=== PATIENT | female | born 2000 | race Caucasian/White ===

== ENCOUNTER → 2022-12-04 12:47 | Outpatient (CLI) | payer BC, SELFPAY ==
--- NOTE | ~2022-12-04 | US_ITS ---
EXAMINATION: US OB transvaginal DATE: 12/04/2022 13:23 INDICATION: Uncertain gestational dates. TECHNIQUE: Real-time transvaginal obstetric ultrasound. FINDINGS: No prior studies for comparison. The uterus measures 8.6 x 4.6 x 5.6 cm. There is an intrauterine gestational sac, with pole rafia ntified. The crown rump length measures 0.31 cm, which correlates with a estimated gestational age o f 5 weeks 6 days. heart tones are identified measuring 118 BPM. The ovaries are within normal limits. There is a small amount of free fluid in the pelvis. IMPRESSION: 1. SL IUP with an EGA of 5 weeks, 6 days (EDC by current ultrasound of 07/31/2023). Reviewed, dictated and finalized at location B. IMPRESSION: 1. SL IUP with an EGA of 5 weeks, 6 days (EDC by current ultrasound of ).
== END ==
PROVIDERS: PCP Obstetrics & Gynecology Gynecology; Visit Provider Obstetrics & Gynecology Gynecology
DX: Z36.87 Encounter for antenatal screening for uncertain dates (principal); Z3A.01 Less than 8 weeks gestation of pregnancy
CPT/HCPCS: 76817

== ENCOUNTER → 2022-12-19 12:44 | Outpatient (CLI) | payer BC, SELFPAY ==
--- NOTE | ~2022-12-19 | US_ITS ---
EXAMINATION: US OB <= 14 weeks fetus DATE: 12/19/2022 13:12 INDICATION: First trimester dating TECHNIQUE: Real-time pelvic transabdominal and transvaginal ultrasound was performed. COMPARISON: 12/04/2022 FINDINGS: The uterus measures 9.3 x 6.3 x 6.2 cm. There is an intrauterine gestational sac. A yolk sa c is identified. heart motion is identified measuring 175 beats per minute (bpm) by M-mode Dopp ler. The crown rump length measures 18 mm, which correlates with an estimated gestational age o f 8 weeks and 2 day(s) (+/-) 5 day(s). The right ovary measures 2.5 x 2.6 x 3.4 cm. The left ovary measures 3.2 x 2.9 x 2.8 cm. There is nor mal vascular flow in the ovaries. There is no free fluid in the pelvis. IMPRESSION: 1. Live intrauterine with an estimated gestational age of 8 weeks and 2 day(s) (+/-) 5 day( s) and an estimated delivery date of 07/29/2023. Reviewed, dictated and finalized at location B. IMPRESSION: 1. Live intrauterine with an estimated gestational age of 8 weeks and 2 day(s) (+/-) 5 day(s) and an estimated delivery date of 07/29/2023.
== END ==
PROVIDERS: PCP Obstetrics & Gynecology Gynecology; Visit Provider Obstetrics & Gynecology Gynecology
DX: O09.01 Supervision of pregnancy with history of infertility, first trimester (principal); Z3A.08 8 weeks gestation of pregnancy
CPT/HCPCS: 76801

== ENCOUNTER → 2023-03-01 15:53 | Outpatient (CLI) | payer BC, SELFPAY ==
--- NOTE | ~2023-03-01 | US_ITS ---
EXAMINATION: US OB /maternal detail DATE: 03/01/2023 16:30 INDICATION: Second trimester anatomic survey TECHNIQUE: Real-time ultrasound of the pelvis was performed. COMPARISON: None. FINDINGS: There is a single living fetus in vertex presentation. The placenta is anterior and 4.9 cm from the i nternal cervical os. The measured cervical length is 3.2 cm. heart rate is 146 beats per minute (bpm). cardiac activity and movement are noted. The amniotic fluid index is subjectivel y normal. The following anatomy was identified as normal: 4 chamber heart 3 vessel cord cord insertion kidneys urinary bladder stomach spine diaphragm ventricles cisterna magna cerebellum The following biometric data were obtained: Biparietal diameter (BPD): 4.3 cm; head circumference (HC): 16.0 cm; abdominal circumference (AC): 13 .3 cm; femur length (FL): 2.9 cm. These measurements are concordant. Estimated weight is 262 g +/- 39 g, which correlates with the 81st percentile when 07/31/2023 is used as estimated date of delivery. As single measurements, these parameters are each equal to the following estimated gestational ages w ith ranges of +/- 2 standard deviations: BPD: 19 weeks 1 days ( 17 weeks 3 days - 20 weeks 6 days). HC: 18 weeks 6 days ( 17 weeks 3 days - 20 weeks 2 days). AC: 18 weeks 5 days ( 16 weeks 5 days - 20 weeks 6 days). FL: 19 weeks 0 days ( 17 weeks 1 days - 20 weeks 5 days). estimated gestational age based solely on measurements from this exam is 19 weeks 0 days +/- 1 weeks 2 days. IMPRESSION: 1. Single living fetus in vertex presentation. 2. Estimated weight is 262 g +/- 39 g, which correlates with the 81st percentile when 07/31/2023 is used as estimated date of delivery. Reviewed, dictated and finalized at location A. GER MARITIME IMPRESSION: 1. Single living fetus in vertex presentation. 2. Estimated weight is 262 g +/- 39 g, which correlates with the 81st per centile when 07/31/2023 is used as estimated date of delivery.
== END ==
PROVIDERS: PCP Advanced Practice Midwife; Visit Provider Advanced Practice Midwife
DX: Z36.9 Encounter for antenatal screening, unspecified (principal); Z3A.19 19 weeks gestation of pregnancy
CPT/HCPCS: 76805

== ENCOUNTER 2023-05-31 13:57 | Outpatient (CLI) | payer BC, SELFPAY ==
--- NOTE | ~2023-05-31 | US_ITS ---
EXAMINATION: US OB follow up DATE: 05/31/2023 14:23 INDICATION: Expected size less than expected for estimated gestational age during third trimest er . TECHNIQUE: Real-time ultrasound of the pelvis was performed. The interpreting radiologist was not pre sent for the study. COMPARISON: 03/01/2023 FINDINGS: There is a single living fetus in vertex presentation. The placenta is anterior and not low-lying. F etal heart rate is 136 beats per minute (bpm). The amniotic fluid index is 14.0 cm, which is normal (5th%-95%: 8.8-23.8 cm at 31 weeks estimated gestational age). The region of the cervix is obscured b y the skull. The following biometric data were obtained: BPD: 8.5 cm -> 34 weeks 1 days Head circumference: 30.9 cm -> 34 weeks 4 days Abdominal circumference: 28.4 cm -> 32 weeks 3 days Femur length: 6.1 cm -> 31 weeks 5 days These measurements are concordant. Head circumference to abdominal circumference ratio: 1.09 (normal range 0.96-1.11). Estimated weight: 2001 g (+/-) 300 g or 4 lbs. 7 oz. (+/-) 11 oz. IMPRESSION: 1. Single living fetus in vertex presentation with heart rate of 136 bpm. 2. Normal amniotic fluid index of 14.0 cm. 3. Estimated weight is 80th percentile by Hadlock criteria when 07/31/2023 is used as the estima palmira date of delivery (DARBY). Please correlate with clinical information or earlier ultrasounds for mos t accurate DARBY. Reviewed, dictated and finalized at location A. FOREMAN IMPRESSION: 1. Single living fetus in vertex presentation with heart rate of 136 bpm. 2. Normal amniotic fluid index of 14.0 cm. 3. Estimated weight is 80th percentile by Hadlock criteria when 07/31/2023 is used as the estimated date of delivery (DARBY). Please correlate with clinica l information or earlier ultrasounds for most accurate DARBY.
== END 2023-05-31 13:58 ==
LOC: MICIMG 13:57
PROVIDERS: PCP Obstetrics & Gynecology Gynecology; Visit Provider Obstetrics & Gynecology Gynecology
DX: O36.5930 Maternal care for other known or suspected poor fetal growth, third trimester, not applicable or unspecified (principal); Z3A.00 Weeks of gestation of pregnancy not specified
CPT/HCPCS: 76816

== ENCOUNTER 2023-07-12 13:59 | Outpatient (CLI) | payer BC, SELFPAY ==
--- NOTE | ~2023-07-12 | US_ITS ---
EXAMINATION: US OB follow up DATE: 07/12/2023 14:22 INDICATION: Size less than dates during third trimester TECHNIQUE: Real-time ultrasound of the pelvis was performed. The interpreting radiologist was not pre sent for the study. COMPARISON: None. FINDINGS: There is a single living fetus in vertex presentation. The placenta is anterior. card iac activity and movement are noted. heart rate is 146 beats per minute (bpm). The amniot ic fluid index is 14.9 cm which is normal (normal range: 7.5 cm to 24.4 cm). The following biometric data were obtained: Biparietal diameter (BPD): 9.0 cm; head circumference (HC): 32.9 cm; abdominal circumference (AC): 32 .6 cm; femur length (FL): 7.1 cm. These measurements are concordant. Estimated weight is 2985 g +/- 447 g, which correlates with the 40th percentile when 07/31/2023 is used as estimated date of delivery. As single measurements, these parameters are each equal to the following estimated gestational ages w ith ranges of +/- 2 standard deviations: BPD: 36 weeks 5 days ( 33 weeks 3 days - 39 weeks 6 days). HC: 37 weeks 3 days ( 34 weeks 5 days - 40 weeks 1 days). AC: 36 weeks 4 days ( 33 weeks 4 days - 39 weeks 4 days). FL: 36 weeks 2 days ( 33 weeks 2 days - 39 weeks 1 days). estimated gestational age based solely on measurements from this exam is 36 weeks 5 days +/- 2 weeks 4 days. IMPRESSION: 1. Single living fetus in vertex presentation. 2. Normal amniotic fluid index. 3. Estimated weight is 2985 g +/- 447 g, which correlates with the 40th percentile when 07/31/19 24 is used as estimated date of delivery. Reviewed, dictated and finalized at location F. IMPRESSION: 1. Single living fetus in vertex presentation. 2. Normal amniotic fluid index. 3. Estimated weight is 2985 g +/- 447 g, which correlates with the 40th p ercentile when 07/31/2023 is used as estimated date of delivery.
== END 2023-07-12 14:00 ==
LOC: MICIMG 14:01
PROVIDERS: PCP Obstetrics & Gynecology Gynecology; Visit Provider Obstetrics & Gynecology Gynecology
DX: O36.5930 Maternal care for other known or suspected poor fetal growth, third trimester, not applicable or unspecified (principal); Z3A.00 Weeks of gestation of pregnancy not specified
CPT/HCPCS: 76816

== ENCOUNTER 2023-07-26 11:05 | Inpatient (IN) | payer BC, SELFPAY ==
[2023-07-26] VITALS (26 sets, daily range): BP systolic 102–133; BP diastolic 58–105; PULSE 68–184; RESP 16–20; TEMP 36.6–37.2; BMI 30.2
--- NOTE | 2023-07-26 11:50 | LDADM ---
This patient, Daija King, was admitted to Labor/Delivery/Recovery 107 on 07/26/23 at 11:05. Plans for labor, pain management and were discussed with patient. Patient/family oriented to hospital policies and general routines including ID bracelet, bed and alarms, visiting hours, pain management, procedures, bathroom and other care routines, personal items, smoking policy, room service/diet and guest tray routines, security routines, and visiting hours. Patient/Family are encouraged to report perceived risks to care and to ask questions if they do not understand what they are told or what they should do. See OBIX for further documentation.
[2023-07-26] MEDS: LACTATED RINGERS 1,000 ML 125 ML IV CONT (12:20)
[2023-07-26] MEDS: AMPICILLIN 2 GM/NS 100 ML 2 GM/100 ML BAG IVPB (12:21)
[2023-07-26 12:35] LABS: Hematocrit 35.7 % (37.0-47.0); Hemoglobin 11.8 g/dL (12.0-15.0); Mean Corpuscular HGB Conc 33.1 g/dl (32-36); Mean Corpuscular Hemoglobin 27.1 pg (26-34); Mean Corpuscular Volume 82.1 fl (80-100); Mean Platelet Volume 10.5 fl (7.4-10.4); Platelet Count Result 187 k/mm3 (150-375); Red Blood Count 4.35 M/mm3 (4.2-5.4); Red Cell Distribution Width 13.2 % (11.5-14.5); White Blood Count 9.6 K/mm3 (4.5-10.0)
--- NOTE | 2023-07-26 15:09 | WPDOBADMIT ---
Obstetrics - Admit Note Admission Note: record reviewed. No pertinent additions to the history and/or any subsequent changes in the physical findings that are not consistent with the expected course of the were found. Additions to the history and/or subsequent changes in the physical findings follow. Here with [facility] in early labor. Last check 5-6 cm. Pitocin if needed. FHTs reactive.
[2023-07-26] MEDS: AMPICILLIN 1 GM/NS 50 ML 1 GM/50 ML BAG IVPB (17:00)
--- NOTE | 2023-07-26 17:50 | WPDANESEPP ---
Anes - Eval Pre Procedure Procedure: labor epidural Date/Time: 07/26/23 17:50 Surgeon: mariza Preop Diagnosis: pain during labor Pre Op Diagnosis: LABOR Patient Data Age: 23 Gender: F Height: 1.75 m Weight: 93 kg Last Vital Signs Temp 36.6 C 07/26/23 15:30 Pulse 78 07/26/23 17:03 Resp 18 07/26/23 15:30 BP 129/68 07/26/23 17:03 O2 Del Method Room Air 07/26/23 11:50 Allergies Allergy/AdvReac Type Severity Reaction Status Date / Time ciprofloxacin [From Cipro] Allergy Hives Verified 06/28/23 14:39 Home Medications Medication Instructions Recorded Confirmed Type cholecalciferol (vitamin D3) 1,250 1,250 mcg PO WEEKLY 06/28/23 06/28/23 History mcg (50,000 unit) tablet prenat.vits,samy,[id number]-[id number] 1 tablet 06/28/23 History Laboratory Tests 07/26/23 12:14 WBC 9.6 K/mm3 (4.5-10.0) RBC 4.35 M/mm3 (4.2-5.4) Hgb 11.8 L g/dL (12.0-15.0) Hct 35.7 L % (37.0-47.0) MCV 82.1 fl (80-100) MCH 27.1 pg (26-34) MCHC 33.1 g/dl (32-36) RDW 13.2 % (11.5-14.5) Plt Count 187 k/mm3 (150-375) MPV 10.5 H fl (7.4-10.4) Immature Gran % (Auto) Not Reportable Neut % (Auto) Not Reportable Lymph % (Auto) Not Reportable [place] % (Auto) Not Reportable Eos % (Auto) Not Reportable Baso % (Auto) Not Reportable Lymph # (Auto) Not Reportable [place] # (Auto) Not Reportable Eos # (Auto) Not Reportable Baso # (Auto) Not Reportable Abs Immat Gran (auto) Not Reportable Absolute Neuts (auto) Not Reportable Absolute Nucleated RBC Not Reportable Nucleated RBC % Not Reportable RPR Pending Blood Type A Negative Antibody Screen Negative Patient hx anesthesia problems: none Family hx anesthesia problems: none Results Review: All pre-operative results and documents have been reviewed as part of the pre-operative evaluation. [facility] Past Medical History Medical History (Updated 07/26/23 @ 17:51 by Reta Pavon CRNA) IUP (intrauterine ), incidental Family History Family History (Updated 06/28/23 @ 14:45 by Brenda Narayanan RN) Grandparent Diabetes mellitus Gallbladder cancer Grandparent Congestive heart disease Grandparent Diabetes mellitus Social History Social History Smoking status: Never smoker Second hand tobacco smoke exposure: No Substance use: never Do You Feel Safe in your Home?: Yes Lack of Transportation: No Lack of Food: Never True Current Housing: I Have Housing Concerned About Future Housing: No Difficulty Paying Gas/Electric Bills: No Difficulty Paying for Meds: No Currently Unemployed: No Education: High School Diploma/GED Difficulty w/ Childcare or Family Care: No Spiritual care concerns: No Exam Day of Procedure 07/26/23 17:50
[2023-07-26] MEDS: OXYTOCIN 30 UNITS/NS 500 ML 30 UNITS/500 ML BAG 999 UNITS IV CONT (18:37)
[2023-07-26] MEDS: LIDOCAINE HCL 1% LOCAL INJ 20 ML VIAL (18:45)
--- NOTE | 2023-07-26 18:57 | PM.OBPRVD ---
OB - Vaginal Delivery Note Procedure Delivery date: 07/26/23 Induction method: None Delivery monitor: External FHT and External Uterine Route of delivery: Laceration Description: Periurethral (right) and Perineal - 2nd Degree Delivery repair: vicryl (3-0) Specimen: No Quantitative Blood Loss (ml): 150 Anesthesia type: Local Disposition: Floor Complications: No immediate complications [place] Baby Date of : 07/26/23 Weeks of gestation at delivery: 39 (39 6/7 weeks) gender: Female presentation: vertex Placenta delivery description: Spontaneous Cord Vessel Description: 3 Vessels, Nuchal Cord (and around body) and Delayed Cord Clamping score one minute: 8 score five minutes: 9
--- NOTE | 2023-07-26 19:03 | PM.OBDSVD ---
DS: Admitting Diagnosis Discharge Date 07/28/23 Admitting Diagnosis [facility] in labor at 39 6/7 DS: Discharge Diagnosis Discharge Diagnosis (1) (normal spontaneous vaginal delivery): Code(s): O80 - Encounter for full-term uncomplicated delivery Status: Acute OB - DS: Summary OB Procedures : Ultrasound OB Procedures Intrapartum: Spontaneous Vag Delivery OB Procedures: : None Peripartum Data Delivery Method: Natural Vaginal Laceration Description: Periurethral (right) and Perineal - 2nd Degree complications: none Status at Discharge Functional status at discharge: independent ambulation Overall status at discharge: patient is progressing back to baseline Time Spent with Patient Time attestation: Total time spent providing and/or coordinating discharge services: DS: Data Data Completed and Pending Labs on day of discharge: Labs from last 24 hours 07/26/23 12:14 WBC 9.6 RBC 4.35 Hgb 11.8 L Hct 35.7 L MCV 82.1 MCH 27.1 MCHC 33.1 RDW 13.2 Plt Count 187 MPV 10.5 H Immature Gran % (Auto) Not Reportable Neut % (Auto) Not Reportable Lymph % (Auto) Not Reportable [place] % (Auto) Not Reportable Eos % (Auto) Not Reportable Baso % (Auto) Not Reportable Lymph # (Auto) Not Reportable [place] # (Auto) Not Reportable Eos # (Auto) Not Reportable Baso # (Auto) Not Reportable Abs Immat Gran (auto) Not Reportable Absolute Neuts (auto) Not Reportable Absolute Nucleated RBC Not Reportable Nucleated RBC % Not Reportable RPR Pending Blood Type A Negative Antibody Screen Negative Discharge Plan Discharge Attending physician on discharge: Joycelyn Alvarado Discharging Clinician: Joycelyn Alvarado Anticipated Discharge Date/Time: 07/28/23 19:06 Patient Disposition: Home, Self-Care Activity: may shower and pelvic rest Diet: regular Patient Instructions: Antibiotic Form Stand Alone Forms: General Discharge Information Follow-up/Referrals: Joycelyn Alvarado MD [Physician] - 6 Weeks Discharge Medications: Continued #2 Tablet 1 tablet cholecalciferol (vitamin D3) 1,250 mcg (50,000 unit) Tablet 1,250 mcg PO WEEKLY Date of admission: 07/26/23 11:05 Primary Care Provider: PHYSICIAN,SUPERVISOR COMPUTER [employer]PERATIONS Admitting Provider: Joycelyn Alvarado Attending physician on admission: Joycelyn Alvarado Condition: Stable
[2023-07-26] MEDS: OXYTOCIN 30 UNITS/NS 500 ML 30 UNITS/500 ML BAG 125 UNITS IV CONT (19:10)
[2023-07-26] MEDS: WITCH HAZEL 40 PADS 1 PAD TOPICAL (19:25)
[2023-07-26] MEDS: LANOLIN (LANSINOH) 7.5 GM CREAM 1 APPLIC TOPICAL (19:26)
[2023-07-26] MEDS: BENZOCAINE 20% AER SPR (*SP) 56 GM CAN 1 SPRAY TOPICAL (19:26)
[2023-07-26] MEDS: IBUPROFEN 600 MG TABLET PO (19:26)
--- NOTE | 2023-07-26 22:42 | OBPPTRN ---
Patient transferred to post room #290 via ambulation. Support person present. Oriented to unit, room, information board, rooming in, admission packet and security measures. Patient verbalizes understanding.
[2023-07-27] MEDS: ACETAMINOPHEN 325 MG TABLET 650 MG PO ×3 (01:04→17:10)
[2023-07-27] MEDS: IBUPROFEN 600 MG TABLET PO (04:45)
[2023-07-27 04:50] VITALS: BP 115/66; PULSE 63; RESP 16; TEMP 36.4
[2023-07-27 05:48] LABS: Hematocrit 29.9 % (37.0-47.0); Hemoglobin 9.8 g/dL (12.0-15.0)
[2023-07-27] MEDS: MULTIVIT/MIN/PREN/FOL AC/IRON TABLET 1 TAB PO (06:53)
[2023-07-27] MEDS: DOCUSATE SODIUM 100 MG CAPSULE PO ×2 (06:54→17:11)
[2023-07-27] MEDS: POLYSACCHARIDE IRON COMPLEX 150 MG CAPSULE PO ×2 (06:54→17:11)
[2023-07-27 07:45] VITALS: BP 118/72; PULSE 74; RESP 18; TEMP 36.6; O2SAT 100
--- NOTE | 2023-07-27 09:40 | PM.OBPNVD ---
OB - PN: Subj Subjective Date/time seen: 07/27/23 09:40 Patient comments: no complaints and pain well controlled baby status: doing well OB - PN: Obj Data Labs 07/27/23 04:52 Labs: Laboratory Results - last 24 hr 07/26/23 07/27/23 12:14 04:52 WBC 9.6 RBC 4.35 Hgb 11.8 L 9.8 L Hct 35.7 L 29.9 L MCV 82.1 MCH 27.1 MCHC 33.1 RDW 13.2 Plt Count 187 MPV 10.5 H Immature Gran % (Auto) Not Reportable Neut % (Auto) Not Reportable Lymph % (Auto) Not Reportable [place] % (Auto) Not Reportable Eos % (Auto) Not Reportable Baso % (Auto) Not Reportable Lymph # (Auto) Not Reportable [place] # (Auto) Not Reportable Eos # (Auto) Not Reportable Baso # (Auto) Not Reportable Abs Immat Gran (auto) Not Reportable Absolute Neuts (auto) Not Reportable Absolute Nucleated RBC Not Reportable Nucleated RBC % Not Reportable Blood Type A Negative Antibody Screen Negative OB - PN A/P Plan day: 1 Plan: routine care Time Spent With Patient Time: Total time spent is greater than 50% in coordination of care (as documented) at patient's floor/unit and/or counseling patient: Exam : Bimanual exam- vagina & uterus: other (Uterus firm, nt @U)
[2023-07-27 12:11] VITALS: BP 102/61; PULSE 84; RESP 16; TEMP 37.1; O2SAT 100
[2023-07-27 12:23] LABS: Rapid Plasma Reagin Non-Reactive (NonReactive)
--- NOTE | 2023-07-27 15:53 | PC.NURSE ---
[id number] Introductions were made and Mother verbalizes she is able to independently latch and denies any nipple discomfort and is responsively . Questions were answered and discussed. Parents have great support and there's a maternal mother and grandmother who is supportive and knowledgeable with a history that shares appropriate and accurate information. Father of baby understands how to detach infant from the breast to protect mothers nipple. Reinforced understanding of milk production, transition of milk, signs of adequate intake, transition of stool, prevention/relief of engorgement, plugged ducts, mastitis, responsive watching for feeding cues, the different methods of stimulating infant to breastfeed 1-3 hours after the start of the last feeding, community resources, and when to call a provider using the resource of the feeding sheet along with the mom and baby guide. Mother voiced understanding of information shared along with the mom/baby guide for an additional resource.
[2023-07-27 19:38] VITALS: BP 115/51; PULSE 74; RESP 18; TEMP 37.1; O2SAT 99
[2023-07-28 08:00] VITALS: BP 114/74; PULSE 84; RESP 18; TEMP 36.7; O2SAT 100
[2023-07-28] MEDS: DOCUSATE SODIUM 100 MG CAPSULE PO (08:35)
[2023-07-28] MEDS: MULTIVIT/MIN/PREN/FOL AC/IRON TABLET 1 TAB PO (08:35)
[2023-07-28] MEDS: IBUPROFEN 600 MG TABLET PO (08:35)
[2023-07-28] MEDS: POLYSACCHARIDE IRON COMPLEX 150 MG CAPSULE PO (08:36)
--- NOTE | 2023-07-28 11:13 | PM.OBPNVD ---
OB - PN: Subj Subjective Date/time seen: 07/28/23 11:13 Patient comments: no complaints baby status: doing well OB - PN: Obj Data Labs 07/27/23 04:52 Labs: Laboratory Results - last 24 hr 07/26/23 12:14 RPR Non-reactive OB - PN A/P Plan day: 2 Plan: routine care, discharge home and follow up 6 weeks Time Spent With Patient Time: Total time spent is greater than 50% in coordination of care (as documented) at patient's floor/unit and/or counseling patient: Exam : Bimanual exam- vagina & uterus: other (Uterus firm, nt @U)
--- NOTE | 2023-07-28 11:41 | PC.NURSE ---
Patient viewed the discharge video Mother & Baby Care, The First Two Weeks . Patient was given the opportunity and encouraged to ask questions. Patient verbalized understanding of information shared and has been given the mother/baby guide for home reference.
[2023-07-30 11:38] VITALS: BP 111/72; PULSE 91; RESP 18; TEMP 36.8; O2SAT 99
== END 2023-07-28 13:28 | disposition home or self-care (01) | DRG 807 ==
LOC: ANHLDR 19:07 → ANHOB2 23:02
PROVIDERS: Admitting Provider Obstetrics & Gynecology Gynecology; Visit Provider Obstetrics & Gynecology Gynecology
DX: O99.824 Streptococcus B carrier state complicating childbirth (principal); Z37.0 Single live birth; Z3A.39 39 weeks gestation of pregnancy; O69.82X0 Labor and delivery complicated by other cord entanglement, without compression, not applicable or unspecified; O70.1 Second degree perineal laceration during delivery; O71.82 Other specified trauma to perineum and vulva
CPT/HCPCS: 36415; 84112; 85014; 85018; 85025; 86592; 86850; 86900; 86901; A9270; J0290; J2590; J7120